=== PATIENT | female | born 1995 | race Caucasian/White ===

== ENCOUNTER 2021-08-23 09:28 | Emergency (ER) | payer OTHER ==
[~2021-08-23] VITALS: Ht 152.4 cm; Wt 62.7 kg
[2021-08-23 09:28] VITALS: TEMP 97.8
[2021-08-23 09:42] LABS: HEMOGLOBIN 11.9 g/dl (12.5-16.0); MEAN CELL VOLUME 87 fl (80.0-100.0); MEAN CORPUSCULAR HEMOGLOBIN 28 pg (27.0-31.0); MEAN CORPUSCULAR HGB CONC 33 g/dl (33.0-37.0); MEAN PLATELET VOLUME 9.7 fl (7.4-10.4); PLATELET COUNT 370 K/mm3 (130-400); RED BLOOD COUNT 4.22 M/mm3 (4.10-5.30); REDCELL DISTRIBUTION WIDTH-CV 12.6 % (11.5-14.5)
[2021-08-23 09:43] LABS: HEMATOCRIT 36.6 % (37.0-47.0)
[2021-08-23 09:56] LABS: ANISOCYTOSIS 1+; BAND 4 % (0-10); LYMPHOCYTE 20 % (20.0-51.0); NEUTROPHILS 69 % (42.0-75.2); PLATELET ESTIMATE NORMAL (NORMAL)
[2021-08-23 10:04] LABS: ALANINE AMINOTRANSFERASE 26 U/L (0-55); ALBUMIN 3.6 gm/dL (3.5-5.0); ALKALINE PHOSPHATASE 93 U/L (40-150); ANION GAP 15 mmol/L (7-16); AST,SGOT 54 U/L (5-34); BILIRUBIN,TOTAL 0.5 mg/dL (0.2-1.2); BLOOD UREA NITROGEN 12 mg/dL (7-19); CALCIUM 8.6 mg/dL (8.4-10.2); CARBON DIOXIDE 17 mmol/L (22-29); CHLORIDE 111 mmol/L (98-107); CREATININE, serum 0.89 mg/dL (0.57-1.11); GLUCOSE 128 mg/dL (70-99); POTASSIUM 3.5 mmol/L (3.5-4.5); SODIUM 143 mmol/L (136-145); TOTAL PROTEIN 7.2 gm/dL (6.2-8.1)
[2021-08-23 10:05] LABS: ALCOHOL(ethanol),MEDICAL < 10 mg/dL (0-10)
[2021-08-23 10:10] VITALS: BP 122/85; PULSE 107
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
== END 2021-08-23 10:10 | disposition short-term general hospital (02) ==
LOC: COL.ER 09:28
PROVIDERS: Personal Emergency Response Attendant
DX: S32.432A Displaced fracture of anterior column [iliopubic] of left acetabulum, initial encounter for closed fracture (principal); S32.502A Unspecified fracture of left pubis, initial encounter for closed fracture; V03.90XA Pedestrian on foot injured in collision with car, pick-up truck or van, unspecified whether traffic or nontraffic accident, initial encounter
CPT/HCPCS: J0690; J3010; P9016